=== PATIENT | female | born 1995 | race Native Hawaiian/Other Pacific Islander ===

== ENCOUNTER 2022-09-25 22:22 | Emergency (ER) | payer OTHER ==
[~2022-09-25] VITALS: Ht 162.6 cm; Wt 90.7 kg
[2022-09-25 23:20] LABS: PLATELET COUNT 268 K/uL (152-353)
[2022-09-25 23:26] LABS: POTASSIUM 3.7 mmol/L (3.6-5.2)
[2022-09-26 01:00] VITALS: BP 106/61; TEMP 97.2
== END 2022-09-26 01:00 | disposition home or self-care (01) ==
LOC: ED 22:22
PROVIDERS: Family Medicine
DX: N39.0 Urinary tract infection, site not specified (principal); R10.9 Unspecified abdominal pain
CPT/HCPCS: 36415; 80048; 85027; 99283